=== PATIENT | female | born 1965 | race Caucasian/White ===

== ENCOUNTER 2017-11-30 10:21 | Inpatient (IN) | payer OTHER ==
[2017-11-30 11:49] VITALS: BMI 33.0
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
[2017-11-30] MEDS ORDERED: MENTHOL/PHENOL 1 EACH UD MM PRN (13:35)
[2017-11-30] MEDS ORDERED: MAGNESIUM CITRATE 300 ML BOTTLE PO PRN (13:35)
[2017-11-30] MEDS ORDERED: MAGNESIUM HYDROX 2400MG/30ML ORAL SUSPENSION 30 ML CUP PO PRN (13:35)
[2017-11-30] MEDS ORDERED: LOPERAMIDE HCL 2 MG CAPSULE PO PRN (13:35)
[2017-11-30] MEDS ORDERED: guaiFENesin/D-METHORPHAN HB 10 ML UNIT-DOSE CUPS PO PRN (13:35)
[2017-11-30] MEDS ORDERED: P-EPHED 60MG/TRIPROLIDI 2.5MG TABLET PO PRN (13:35)
[2017-11-30] MEDS ORDERED: NICOTINE POLACRILEX 2 MG GUM BC PRN (13:35)
[2017-11-30] MEDS ORDERED: MAG HYDROX/AL HYDROX/SIMETH 30 ML UNIT-DOSE CUP PO PRN (13:35)
[2017-11-30] MEDS ORDERED: ACETAMINOPHEN 325 MG TABLET (FP) PO PRN (13:35)
[2017-11-30] MEDS ORDERED: diazePAM 5 MG TABLET PO ONE (14:45)
[2017-11-30] MEDS ORDERED: BACITRACIN 0.9 GM PACKET TP ONE (15:53)
[2017-11-30] MEDS: CALCIUM 500MG/VIT-D 200 UNITS COMBO TABLET (FP) PO SCH (16:00)
[2017-11-30] MEDS: NICOTINE 14 MG/24 HOURS TOPICAL PATCH TD SCH (16:01)
[2017-11-30] MEDS: diazePAM 5 MG TABLET PO SCH ×2 (16:01→22:46)
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
[2017-11-30] MEDS: diazePAM 5 MG TABLET PO PRN (19:13)
[2017-11-30 19:24] LABS: URINE APPEARANCE SLCLOUDY; URINE BILIRUBIN NEGATIVE (<2.0 mg/dL); URINE COLOR YELLOW; URINE GLUCOSE (UA) NEGATIVE (NEGATIVE); URINE KETONE NEGATIVE (NEGATIVE); URINE NITRITE NEGATIVE (NEGATIVE); URINE PROTEIN NEGATIVE (NEGATIVE); URINE UROBILINOGEN NEGATIVE mg/dL (0.2-1.0)
[2017-11-30 20:21] LABS: URINE LEUK ESTERASE 3+ (NEGATIVE)
[2017-11-30] MEDS: LIDOCAINE 5% TOPICAL PATCH TP SCH (20:28)
[2017-11-30 20:36] LABS: EPI CELLS MODERATE /HPF (FEW); URINE BACTERIA FEW /hpf (NONE SEEN); URINE MUCUS RARE
[2017-11-30] MEDS ORDERED: MELATONIN 5 MG TABLETS PO PRN (22:00)
[2017-11-30] MEDS: QUEtiapine FUMARATE 50 MG TABLET PO SCH (22:46)
[2017-11-30] MEDS: THIAMINE HCL 100 MG TABLET (FP) PO SCH (22:47)
[2017-11-30] MEDS: MINERAL OIL/PETROLAT/WATER TOPICAL CREAM 113 GM JAR TP SCH (22:50)
[2017-11-30] MEDS: LIDOCAINE PATCH REMOVAL MC SCH (22:51)
[2017-12-01] MEDS: diazePAM 5 MG TABLET PO SCH ×3 (06:48→22:22)
[2017-12-01] MEDS ORDERED: METHADONE HCL 40 MG DISPERSABLE TABLET PO SCH ×3 (07:30→10:00)
[2017-12-01] MEDS ORDERED: METHADONE 40 MG, METHADONE 30 MG PO ONE (08:15)
[2017-12-01] MEDS ORDERED: METHADONE HCL 40 MG DISPERSABLE TABLET ONE (08:41)
[2017-12-01] MEDS ORDERED: METHADONE HCL 10 MG TABLET ONE (08:42)
[2017-12-01] MEDS: IBUPROFEN 400 MG TABLET (FP) PO PRN ×2 (08:54→22:22)
[2017-12-01 09:48] LABS: HEMATOCRIT 37.8 % (32.4-45.2); HEMOGLOBIN 12.7 GM/dL (10.7-15.3); MCH 26.5 pg (25.7-33.7); MCHC 33.6 g/dl (32.0-36.0); MEAN CELL VOLUME 78.8 fl (80-96); MEAN PLT VOLUME 11.3 fl (7.5-11.1); PLATELET COUNT 76 K/MM3 (134-434); RDW 15.8 % (11.6-15.6); WHITE BLOOD COUNT 9.9 K/mm3 (4.0-10.0)
--- NOTE | 2017-12-01 09:49 | EKG ---
Test Reason : Blood Pressure : / mmHG Vent. Rate : 068 BPM Atrial Rate : 068 BPM P-R Int : 140 ms QRS Dur : 098 ms QT Int : 518 ms P-R-T Axes : 023 -19 015 degrees QTc Int : 550 ms NORMAL SINUS RHYTHM MODERATE VOLTAGE CRITERIA FOR LVH, MAY BE NORMAL VARIANT PROLONGED QT ABNORMAL ECG NO PREVIOUS ECGS AVAILABLE Confirmed by GIGI GARCIA MD ([id number]) on 12/01/2017 9:49:02 AM Referred By: Confirmed By:GIGI GARCIA MD
[2017-12-01] MEDS ORDERED: LIDOCAINE 5% TOPICAL PATCH TP SCH (10:00)
--- NOTE | 2017-12-01 10:07 | PN ---
[facility] CIWA - CIWA Score Nausea/Vomitin-Mild Nausea/No Vomiting Muscle Tremors: 4-Moderate,w/Arms Extend Anxiety: 4-Mod. Anxious/Guarded Agitation: 4-Moderately Restless Paroxysmal Sweats: 1-Minimal Palms Moist Orientation: 0-Oriented Tacttile Disturbances: 0-None Auditory Disturbances: 0-None Visual Disturbances: 0-None Headache: 0-None Present CIWA-Ar Total Score: 14 BHS Progress Note (SOAP) Subjective: tremor sweat anxiety restlessness trouble sleep at night Objective: 12/01/17 10:05 Vital Signs Temperature 96.4 F L 12/01/17 09:31 Pulse Rate 76 12/01/17 09:31 Respiratory Rate 18 12/01/17 09:31 Blood Pressure 114/56 12/01/17 09:31 O2 Sat by Pulse Oximetry (%) Laboratory Last Values WBC 9.9 K/mm3 (4.0-10.0) 12/01/17 06:00 RBC 4.80 M/mm3 (3.60-5.2) 12/01/17 06:00 Hgb 12.7 GM/dL (10.7-15.3) 12/01/17 06:00 Hct 37.8 % (32.4-45.2) 12/01/17 06:00 MCV 78.8 fl (80-96) L 12/01/17 06:00 MCH 26.5 pg (25.7-33.7) 12/01/17 06:00 MCHC 33.6 g/dl (32.0-36.0) 12/01/17 06:00 RDW 15.8 % (11.6-15.6) H 12/01/17 06:00 Plt Count 76 K/MM3 (134-434) L 12/01/17 06:00 MPV 11.3 fl (7.5-11.1) H 12/01/17 06:00 Urine Color Yellow 11/30/17 15:00 Urine Appearance Slcloudy 11/30/17 15:00 Urine pH 5.0 (5.0-8.0) 11/30/17 15:00 Ur Specific [place] 1.014 (1.001-1.035) 11/30/17 15:00 Urine Protein Negative (NEGATIVE) 11/30/17 15:00 Urine Glucose (UA) Negative (NEGATIVE) 11/30/17 15:00 Urine Ketones Negative (NEGATIVE) 11/30/17 15:00 Urine Blood Negative (NEGATIVE) 11/30/17 15:00 Urine Nitrite Negative (NEGATIVE) 11/30/17 15:00 Urine Bilirubin Negative (<2.0 mg/dL) 11/30/17 15:00 Urine Urobilinogen Negative mg/dL (0.2-1.0) 11/30/17 15:00 Ur Leukocyte Esterase 3+ (NEGATIVE) H 11/30/17 15:00 Urine WBC (Auto) 15 /hpf (3-5) 11/30/17 15:00 Urine RBC (Auto) 2 /hpf (0-3) 11/30/17 15:00 Ur Epithelial Cells Moderate /HPF (FEW) 11/30/17 15:00 Urine Bacteria Few /hpf (NONE SEEN) 11/30/17 15:00 Urine Mucus Rare 11/30/17 15:00 HIV 1&2 Antibody Screen Negative 11/30/17 13:20 HIV P24 Antigen Negative 11/30/17 13:20 lab noted 12/01/17 10:07 repeat ua Assessment: 12/01/17 10:07 withdrawal sx Plan: continue detox
[2017-12-01] MEDS: PRENATAL VITAMINS W/ FOLIC ACID TABLET (FP) PO SCH (10:22)
[2017-12-01] MEDS: CALCIUM 500MG/VIT-D 200 UNITS COMBO TABLET (FP) PO SCH (10:22)
[2017-12-01] MEDS: NICOTINE 14 MG/24 HOURS TOPICAL PATCH TD SCH (10:22)
[2017-12-01] MEDS: LIDOCAINE 5% TOPICAL PATCH TP SCH (10:23)
[2017-12-01 10:37] LABS: ALBUMIN 3.8 g/dl (3.4-5.0); ANION GAP 9 (8-16); BLOOD UREA NITROGEN 31 mg/dL (7-18); CALCIUM 8.8 mg/dL (8.5-10.1); CHLORIDE 88 mmol/L (98-107); CO2 35 mmol/L (21-32); GLUCOSE,RANDOM 188 mg/dL (74-106); POTASSIUM 3.3 mmol/L (3.5-5.1); SODIUM 132 mmol/L (136-145)
[2017-12-01 10:46] LABS: ALK PHOS 97 U/L (45-117); BILIRUBIN,TOTAL 1.9 mg/dL (0.2-1.0); CREATININE 1.6 mg/dL (0.55-1.02); SGOT/AST 30 U/L (15-37); SGPT/ALT 22 U/L (12-78); TOT PROT 8.2 g/dl (6.4-8.2)
--- NOTE | 2017-12-01 11:56 | EKG ---
Test Reason : Blood Pressure : / mmHG Vent. Rate : 073 BPM Atrial Rate : 073 BPM P-R Int : 144 ms QRS Dur : 108 ms QT Int : 484 ms P-R-T Axes : 018 -18 020 degrees QTc Int : 533 ms NORMAL SINUS RHYTHM MODERATE VOLTAGE CRITERIA FOR LVH, MAY BE NORMAL VARIANT PROLONGED QT ABNORMAL ECG WHEN COMPARED WITH ECG OF 30-NOV-2017 15:43, NO SIGNIFICANT CHANGE WAS FOUND Confirmed by RADHA CHEN, GIGI ([id number]) on 12/01/2017 11:56:34 AM Referred By: Confirmed By:GIGI GARCIA MD
[2017-12-01] MEDS: diazePAM 5 MG TABLET PO PRN (19:00)
[2017-12-01] MEDS ORDERED: LIDOCAINE PATCH REMOVAL MC SCH (22:00)
[2017-12-01] MEDS: QUEtiapine FUMARATE 50 MG TABLET PO SCH (22:22)
[2017-12-01] MEDS: THIAMINE HCL 100 MG TABLET (FP) PO SCH (22:22)
[2017-12-01] MEDS: MINERAL OIL/PETROLAT/WATER TOPICAL CREAM 113 GM JAR TP SCH (22:48)
[2017-12-01] MEDS: LIDOCAINE PATCH REMOVAL MC SCH (22:48)
[2017-12-02] MEDS ORDERED: METHADONE HCL 40 MG DISPERSABLE TABLET ONE (09:17)
[2017-12-02] MEDS ORDERED: METHADONE HCL 10 MG TABLET ONE (09:18)
--- NOTE | 2017-12-02 10:09 | PN ---
S CIWA - CIWA Score Nausea/Vomitin-Mild Nausea/No Vomiting Muscle Tremors: 4-Moderate,w/Arms Extend Anxiety: 3 Agitation: 3 Paroxysmal Sweats: 1-Minimal Palms Moist Orientation: 0-Oriented Tacttile Disturbances: 0-None Auditory Disturbances: 0-None Visual Disturbances: 0-None Headache: 0-None Present CIWA-Ar Total Score: 12 BHS Progress Note (SOAP) Subjective: sweat tremor trouble sleeping at night anxiety ambulate with cane Objective: 12/02/17 10:17 Vital Signs Temperature 98.1 F 12/02/17 04:00 Pulse Rate 68 12/02/17 04:00 Respiratory Rate 18 12/02/17 04:00 Blood Pressure 98/50 12/02/17 04:00 O2 Sat by Pulse Oximetry (%) Laboratory Last Values WBC 9.9 K/mm3 (4.0-10.0) 12/01/17 06:00 RBC 4.80 M/mm3 (3.60-5.2) 12/01/17 06:00 Hgb 12.7 GM/dL (10.7-15.3) 12/01/17 06:00 Hct 37.8 % (32.4-45.2) 12/01/17 06:00 MCV 78.8 fl (80-96) L 12/01/17 06:00 MCH 26.5 pg (25.7-33.7) 12/01/17 06:00 MCHC 33.6 g/dl (32.0-36.0) 12/01/17 06:00 RDW 15.8 % (11.6-15.6) H 12/01/17 06:00 Plt Count 76 K/MM3 (134-434) L 12/01/17 06:00 MPV 11.3 fl (7.5-11.1) H 12/01/17 06:00 Sodium 132 mmol/L (136-145) L 12/01/17 06:00 Potassium 3.3 mmol/L (3.5-5.1) L 12/01/17 06:00 Chloride 88 mmol/L (98-107) L 12/01/17 06:00 Carbon Dioxide 35 mmol/L (21-32) H 12/01/17 06:00 Anion Gap 9 (8-16) 12/01/17 06:00 BUN 31 mg/dL (7-18) H 12/01/17 06:00 Creatinine 1.6 mg/dL (0.55-1.02) H 12/01/17 06:00 Creat Clearance w eGFR 33.59 (>60) 12/01/17 06:00 Random Glucose 188 mg/dL (74-106) H 12/01/17 06:00 Calcium 8.8 mg/dL (8.5-10.1) 12/01/17 06:00 Total Bilirubin 1.9 mg/dL (0.2-1.0) H 12/01/17 06:00 AST 30 U/L (15-37) 12/01/17 06:00 ALT 22 U/L (12-78) 12/01/17 06:00 Alkaline Phosphatase 97 U/L (45-117) 12/01/17 06:00 Total Protein 8.2 g/dl (6.4-8.2) 12/01/17 06:00 Albumin 3.8 g/dl (3.4-5.0) 12/01/17 06:00 Urine Color Yellow 11/30/17 15:00 Urine Appearance Slcloudy 11/30/17 15:00 Urine pH 5.0 (5.0-8.0) 11/30/17 15:00 Ur Specific [place] 1.014 (1.001-1.035) 11/30/17 15:00 Urine Protein Negative (NEGATIVE) 11/30/17 15:00 Urine Glucose (UA) Negative (NEGATIVE) 11/30/17 15:00 Urine Ketones Negative (NEGATIVE) 11/30/17 15:00 Urine Blood Negative (NEGATIVE) 11/30/17 15:00 Urine Nitrite Negative (NEGATIVE) 11/30/17 15:00 Urine Bilirubin Negative (<2.0 mg/dL) 11/30/17 15:00 Urine Urobilinogen Negative mg/dL (0.2-1.0) 11/30/17 15:00 Ur Leukocyte Esterase 3+ (NEGATIVE) H 11/30/17 15:00 Urine WBC (Auto) 15 /hpf (3-5) 11/30/17 15:00 Urine RBC (Auto) 2 /hpf (0-3) 11/30/17 15:00 Ur Epithelial Cells Moderate /HPF (FEW) 11/30/17 15:00 Urine Bacteria Few /hpf (NONE SEEN) 11/30/17 15:00 Urine Mucus Rare 11/30/17 15:00 RPR Titer Nonreactive (NONREACTIVE) 12/01/17 06:00 HIV 1&2 Antibody Screen Negative 11/30/17 13:20 HIV P24 Antigen Negative 11/30/17 13:20 lab noted K+ supplement Assessment: 12/02/17 10:23 withdrawal sx low K+ serum Plan: continue detox K+ 20 meq po bid repeat serum K+ level
[2017-12-02] MEDS: diazePAM 5 MG TABLET PO SCH ×2 (10:53→22:34)
[2017-12-02] MEDS: PRENATAL VITAMINS W/ FOLIC ACID TABLET (FP) PO SCH (10:53)
[2017-12-02] MEDS: METHADONE 40 MG, METHADONE 30 MG PO SCH (10:53)
[2017-12-02] MEDS: CALCIUM 500MG/VIT-D 200 UNITS COMBO TABLET (FP) PO SCH (10:54)
[2017-12-02] MEDS: NICOTINE 14 MG/24 HOURS TOPICAL PATCH TD SCH (10:55)
[2017-12-02] MEDS: LIDOCAINE 5% TOPICAL PATCH TP SCH (10:56)
[2017-12-02] MEDS: POTASSIUM CHLORIDE ORAL LIQUID 20 MEQ/15 ML PO SCH ×2 (10:57→22:33)
[2017-12-02] MEDS: diazePAM 5 MG TABLET PO PRN (17:51)
[2017-12-02] MEDS: IBUPROFEN 400 MG TABLET (FP) PO PRN (22:33)
[2017-12-02] MEDS: THIAMINE HCL 100 MG TABLET (FP) PO SCH (22:34)
[2017-12-02] MEDS: QUEtiapine FUMARATE 50 MG TABLET PO SCH (22:34)
[2017-12-02] MEDS: MINERAL OIL/PETROLAT/WATER TOPICAL CREAM 113 GM JAR TP SCH (23:20)
[2017-12-02] MEDS: LIDOCAINE PATCH REMOVAL MC SCH (23:20)
[2017-12-03] MEDS ORDERED: METHADONE HCL 10 MG TABLET ONE (09:11)
[2017-12-03] MEDS ORDERED: METHADONE HCL 40 MG DISPERSABLE TABLET ONE (09:11)
--- NOTE | 2017-12-03 09:50 | PN ---
Psychiatric Progress Note Vital Signs: Vital Signs Period Temp Pulse Resp BP Sys/Tilley Pulse Ox Last 24 Hr 97.5 F-100.0 F 67-75 16-20 99-123/56-68 Date of Session: 12/03/17 Chief Complaint:: " I have anxiety." HPI: Patient admitted to for alcohol and cocaine dependence. ROS: Anemia, Seizures, (last had one 2 days ago), Heartburn, UTI in the past, Hep C (treated) Current Medications: Active Medications Generic Name Dose Route Start Last Admin Trade Name Freq PRN Reason Stop Dose Admin Acetaminophen 650 mg 11/30/17 13:35 Tylenol - PO Q4H PRN FEVER Al Hydroxide/Mg Hydroxide 30 ml 11/30/17 13:35 Mylanta Oral Suspension - PO Q6H PRN DYSPEPSIA Calcium Carbonate/Cholecalciferol 1 tab 11/30/17 15:45 12/02/17 10:54 Os-Thiago 500+D - PO Not Given DAILY KANDACE Diazepam 5 mg 12/02/17 10:00 12/02/17 22:34 Valium - PO 12/03/17 22:01 5 mg BID KANDACE Administration Diazepam 5 mg 12/04/17 10:00 Valium - PO 12/04/17 10:01 DAILY KANDACE Diazepam 10 mg 11/30/17 13:35 12/02/17 17:51 Valium - PO 12/03/17 13:34 10 mg Q4H PRN Administration WITHDRAWAL(CONT SUBST) Eucalyptus/Menthol/Phenol/Sorbitol 1 each 11/30/17 13:35 Cepastat Lozenge - MM Q4H PRN SORE THROAT Guaifenesin 10 ml 11/30/17 13:35 Robitussin Dm - PO Q6H PRN COUGH Ibuprofen 400 mg 11/30/17 13:35 12/02/17 22:33 Motrin - PO 400 mg Q6H PRN Administration PAIN LEVEL 4-6 Lidocaine 2 patch 11/30/17 19:45 12/02/17 10:56 Lidoderm Patch - TP 2 patch DAILY KANDACE Administration Loperamide HCl 4 mg 11/30/17 13:35 Imodium - PO Q6H PRN DIARRHEA Magnesium Citrate 300 ml 11/30/17 13:35 Citroma - PO Q48H PRN CONSTIPATION Magnesium Hydroxide 30 ml 11/30/17 13:35 Milk Of Magnesia - PO DAILY PRN CONSTIPATION Methadone HCl 40 mg/ Methadone 70 mg 12/02/17 10:00 12/02/17 10:53 HCl 30 mg PO 70 mg DAILY KANDACE Administration Miscellaneous 1 each 11/30/17 22:00 12/02/17 23:20 Lidoderm Patch Removal MC Not Given DAILY@2200 KANDACE Multi-Ingredient Lotion 1 applic 11/30/17 22:00 12/02/17 23:20 Eucerin (Small Jar) - TP Not Given HS KANDACE Nicotine 14 mg 11/30/17 14:45 12/02/17 10:55 Nicoderm Patch - TD 14 mg DAILY KANDACE Administration Nicotine Polacrilex 2 mg 11/30/17 13:35 Nicorette Gum - BC Q2H PRN NICOTINE REPLACEMENT RX Potassium Chloride 20 meq 12/02/17 10:45 12/02/17 22:33 Potassium Chloride Oral Liquid PO 20 meq BID KANDACE Administration Multivit/Folic Acid/Iron 1 tab 12/01/17 10:00 12/02/17 10:53 Vitamins (Sjr) - PO 1 tab DAILY KANDACE Administration Pseudoephedrine/Triprolidine 1 combo 11/30/17 13:35 Actifed - PO TID PRN NASAL CONGESTION Quetiapine Fumarate 50 mg 11/30/17 22:00 12/02/17 22:34 Seroquel - PO 50 mg HS KANDACE Administration Thiamine HCl 100 mg 11/30/17 22:00 12/02/17 22:34 Vitamin B1 - PO 100 mg HS KANDACE Administration Medication(s) Change(s): Will order vistaril 25mg every 6 hours for anxiety. Current Side Effect: No Lab tests ordered: No Lab tests reviewed: Yes Provider note:: Print Manager approached patient concerning psychiatric reconsultation. Pt c/o anxiety. States she feels anxious because of the withdrawals. Pt c/o constant sweating, restless legs, and tremors. Patient educated on the withdrawal symptoms of substance dependence. Pt. seen by the nurse practitioner. Patient's symptoms are being addressed with the detox protocol. Vistaril 25mg every 6 hours for patient. Benefits and side effects discussed. Verbal consent given. Will continue to monitor. Total face to face time:: 25 Mental Status Exam - Mental Status Exam Alert and Oriented to: Time, Place, Person Cognitive Function: Good Patient Appearance: Well Groomed Mood: Withdrawn Affect: Flat Patient Behavior: Fatigued Speech Pattern: Delayed Voice Loudness: Moderately Soft/Quiet Thought Process: Goal Oriented Thought Disorder: Not Present Hallucinations: Denies Suicidal Ideation: Denies Homicidal Ideation: Denies Insight/Judgement: Poor Sleep: Fair Appetite: Fair Muscle strength/Tone: Normal Gait/Station: Other (Patient uses a rolling walker to ambulate.) Psychiatric Treatment Plan - Problem List (1) Alcohol dependence with uncomplicated withdrawal Current Visit: Yes (2) Methadone maintenance therapy patient Current Visit: Yes (3) PTSD (post-traumatic stress disorder) Current Visit: Yes (4) Substance induced mood disorder Current Visit: Yes
[2017-12-03] MEDS ORDERED: hydrOXYzine PAMOATE 25 MG CAPSULE (FP) PO PRN (10:22)
[2017-12-03] MEDS: diazePAM 5 MG TABLET PO SCH ×2 (10:25→21:46)
[2017-12-03] MEDS: PRENATAL VITAMINS W/ FOLIC ACID TABLET (FP) PO SCH (10:25)
[2017-12-03] MEDS: METHADONE 40 MG, METHADONE 30 MG PO SCH (10:25)
[2017-12-03] MEDS: POTASSIUM CHLORIDE ORAL LIQUID 20 MEQ/15 ML PO SCH ×2 (10:25→21:45)
[2017-12-03] MEDS: NICOTINE 14 MG/24 HOURS TOPICAL PATCH TD SCH (10:29)
[2017-12-03] MEDS: LIDOCAINE 5% TOPICAL PATCH TP SCH (10:29)
--- NOTE | 2017-12-03 12:17 | PN ---
BHS Progress Note (SOAP) Subjective: feel better less sweat no tremor tolerated food and fluid well Objective: 12/03/17 12:15 Vital Signs Temperature 97.7 F 12/03/17 10:44 Pulse Rate 70 12/03/17 10:44 Respiratory Rate 18 12/03/17 10:44 Blood Pressure 116/55 12/03/17 10:44 O2 Sat by Pulse Oximetry (%) Laboratory Last Values WBC 9.9 K/mm3 (4.0-10.0) 12/01/17 06:00 RBC 4.80 M/mm3 (3.60-5.2) 12/01/17 06:00 Hgb 12.7 GM/dL (10.7-15.3) 12/01/17 06:00 Hct 37.8 % (32.4-45.2) 12/01/17 06:00 MCV 78.8 fl (80-96) L 12/01/17 06:00 MCH 26.5 pg (25.7-33.7) 12/01/17 06:00 MCHC 33.6 g/dl (32.0-36.0) 12/01/17 06:00 RDW 15.8 % (11.6-15.6) H 12/01/17 06:00 Plt Count 76 K/MM3 (134-434) L 12/01/17 06:00 MPV 11.3 fl (7.5-11.1) H 12/01/17 06:00 Sodium 132 mmol/L (136-145) L 12/01/17 06:00 Potassium 4.1 mmol/L (3.5-5.1) 12/03/17 07:30 Chloride 88 mmol/L (98-107) L 12/01/17 06:00 Carbon Dioxide 35 mmol/L (21-32) H 12/01/17 06:00 Anion Gap 9 (8-16) 12/01/17 06:00 BUN 31 mg/dL (7-18) H 12/01/17 06:00 Creatinine 1.6 mg/dL (0.55-1.02) H 12/01/17 06:00 Creat Clearance w eGFR 33.59 (>60) 12/01/17 06:00 POC Glucometer 96 UNITS (80-120) 12/03/17 07:51 Random Glucose 188 mg/dL (74-106) H 12/01/17 06:00 Calcium 8.8 mg/dL (8.5-10.1) 12/01/17 06:00 Total Bilirubin 1.9 mg/dL (0.2-1.0) H 12/01/17 06:00 AST 30 U/L (15-37) 12/01/17 06:00 ALT 22 U/L (12-78) 12/01/17 06:00 Alkaline Phosphatase 97 U/L (45-117) 12/01/17 06:00 Total Protein 8.2 g/dl (6.4-8.2) 12/01/17 06:00 Albumin 3.8 g/dl (3.4-5.0) 12/01/17 06:00 Urine Color Yellow 11/30/17 15:00 Urine Appearance Slcloudy 11/30/17 15:00 Urine pH 5.0 (5.0-8.0) 11/30/17 15:00 Ur Specific [place] 1.014 (1.001-1.035) 11/30/17 15:00 Urine Protein Negative (NEGATIVE) 11/30/17 15:00 Urine Glucose (UA) Negative (NEGATIVE) 11/30/17 15:00 Urine Ketones Negative (NEGATIVE) 11/30/17 15:00 Urine Blood Negative (NEGATIVE) 11/30/17 15:00 Urine Nitrite Negative (NEGATIVE) 11/30/17 15:00 Urine Bilirubin Negative (<2.0 mg/dL) 11/30/17 15:00 Urine Urobilinogen Negative mg/dL (0.2-1.0) 11/30/17 15:00 Ur Leukocyte Esterase 3+ (NEGATIVE) H 11/30/17 15:00 Urine WBC (Auto) 15 /hpf (3-5) 11/30/17 15:00 Urine RBC (Auto) 2 /hpf (0-3) 11/30/17 15:00 Ur Epithelial Cells Moderate /HPF (FEW) 11/30/17 15:00 Urine Bacteria Few /hpf (NONE SEEN) 11/30/17 15:00 Urine Mucus Rare 11/30/17 15:00 RPR Titer Nonreactive (NONREACTIVE) 12/01/17 06:00 HIV 1&2 Antibody Screen Negative 11/30/17 13:20 HIV P24 Antigen Negative 11/30/17 13:20 lab noted Assessment: 12/03/17 12:17 mild withdrawal sx Plan: medically supervised detox
[2017-12-03] MEDS: IBUPROFEN 400 MG TABLET (FP) PO PRN ×2 (12:37→21:45)
[2017-12-03] MEDS: THIAMINE HCL 100 MG TABLET (FP) PO SCH (21:46)
[2017-12-03] MEDS: QUEtiapine FUMARATE 50 MG TABLET PO SCH (21:46)
[2017-12-03] MEDS: LIDOCAINE PATCH REMOVAL MC SCH (23:07)
[2017-12-03] MEDS: MINERAL OIL/PETROLAT/WATER TOPICAL CREAM 113 GM JAR TP SCH (23:07)
[2017-12-04 06:30] VITALS: BP 94/56; PULSE 70; TEMP 98.3
[2017-12-04] MEDS ORDERED: METHADONE HCL 10 MG TABLET ONE (09:04)
[2017-12-04] MEDS ORDERED: METHADONE HCL 40 MG DISPERSABLE TABLET ONE (09:04)
[2017-12-04] MEDS: PRENATAL VITAMINS W/ FOLIC ACID TABLET (FP) PO SCH (09:05)
[2017-12-04] MEDS: METHADONE 40 MG, METHADONE 30 MG PO SCH (09:05)
[2017-12-04] MEDS: POTASSIUM CHLORIDE ORAL LIQUID 20 MEQ/15 ML PO SCH (09:06)
[2017-12-04] MEDS: IBUPROFEN 400 MG TABLET (FP) PO PRN (09:10)
[2017-12-04] MEDS: LIDOCAINE 5% TOPICAL PATCH TP SCH (09:11)
[2017-12-04] MEDS ORDERED: diazePAM 5 MG TABLET PO SCH (10:00)
[2017-12-04 11:37] LABS: URINE APPEARANCE CLOUDY; URINE BILIRUBIN NEGATIVE (<2.0 mg/dL); URINE COLOR YELLOW; URINE GLUCOSE (UA) NEGATIVE (NEGATIVE); URINE KETONE NEGATIVE (NEGATIVE); URINE NITRITE NEGATIVE (NEGATIVE); URINE PROTEIN NEGATIVE (NEGATIVE)
[2017-12-04 11:38] LABS: URINE LEUK ESTERASE 2+ (NEGATIVE)
[2017-12-04 11:39] LABS: EPI CELLS MODERATE /HPF (FEW); URINE BACTERIA FEW /hpf (NONE SEEN)
--- NOTE | 2017-12-04 14:34 | DS ---
[facility] Detox Discharge Summary Admission Date: 11/30/17 Discharge Date: 12/04/17 - History Present History: Alcohol Dependence, Cannabis Dependence, Cocaine Dependence, Opioid Dependence Pertinent Past History: Seizure disorder, Hep C, GERD - Physical Exam Results Vital Signs: Vital Signs Temperature 98.3 F 12/04/17 06:29 Pulse Rate 70 12/04/17 06:29 Respiratory Rate 16 12/04/17 06:29 Blood Pressure 94/56 12/04/17 06:29 O2 Sat by Pulse Oximetry (%) Pertinent Admission Physical Exam Findings: Withdrawal sx Laboratory Last Values WBC 9.9 K/mm3 (4.0-10.0) 12/01/17 06:00 RBC 4.80 M/mm3 (3.60-5.2) 12/01/17 06:00 Hgb 12.7 GM/dL (10.7-15.3) 12/01/17 06:00 Hct 37.8 % (32.4-45.2) 12/01/17 06:00 MCV 78.8 fl (80-96) L 12/01/17 06:00 MCH 26.5 pg (25.7-33.7) 12/01/17 06:00 MCHC 33.6 g/dl (32.0-36.0) 12/01/17 06:00 RDW 15.8 % (11.6-15.6) H 12/01/17 06:00 Plt Count 76 K/MM3 (134-434) L 12/01/17 06:00 MPV 11.3 fl (7.5-11.1) H 12/01/17 06:00 Sodium 132 mmol/L (136-145) L 12/01/17 06:00 Potassium 4.1 mmol/L (3.5-5.1) 12/03/17 07:30 Chloride 88 mmol/L (98-107) L 12/01/17 06:00 Carbon Dioxide 35 mmol/L (21-32) H 12/01/17 06:00 Anion Gap 9 (8-16) 12/01/17 06:00 BUN 31 mg/dL (7-18) H 12/01/17 06:00 Creatinine 1.6 mg/dL (0.55-1.02) H 12/01/17 06:00 Creat Clearance w eGFR 33.59 (>60) 12/01/17 06:00 POC Glucometer 112 UNITS (80-120) 12/04/17 05:35 Random Glucose 188 mg/dL (74-106) H 12/01/17 06:00 Calcium 8.8 mg/dL (8.5-10.1) 12/01/17 06:00 Total Bilirubin 1.9 mg/dL (0.2-1.0) H 12/01/17 06:00 AST 30 U/L (15-37) 12/01/17 06:00 ALT 22 U/L (12-78) 12/01/17 06:00 Alkaline Phosphatase 97 U/L (45-117) 12/01/17 06:00 Total Protein 8.2 g/dl (6.4-8.2) 12/01/17 06:00 Albumin 3.8 g/dl (3.4-5.0) 12/01/17 06:00 Urine Color Yellow 12/04/17 07:40 Urine Appearance Cloudy 12/04/17 07:40 Urine pH 6.0 (5.0-8.0) 12/04/17 07:40 Ur Specific [place] 1.011 (1.001-1.035) 12/04/17 07:40 Urine Protein Negative (NEGATIVE) 12/04/17 07:40 Urine Glucose (UA) Negative (NEGATIVE) 12/04/17 07:40 Urine Ketones Negative (NEGATIVE) 12/04/17 07:40 Urine Blood Negative (NEGATIVE) 12/04/17 07:40 Urine Nitrite Negative (NEGATIVE) 12/04/17 07:40 Urine Bilirubin Negative (<2.0 mg/dL) 12/04/17 07:40 Urine Urobilinogen 2.0 mg/dL (0.2-1.0) H 12/04/17 07:40 Ur Leukocyte Esterase 2+ (NEGATIVE) H 12/04/17 07:40 Urine WBC (Auto) 17 /hpf (3-5) 12/04/17 07:40 Urine RBC (Auto) <1 /hpf (0-3) 12/04/17 07:40 Ur Epithelial Cells Moderate /HPF (FEW) 12/04/17 07:40 Urine Bacteria Few /hpf (NONE SEEN) 12/04/17 07:40 Urine Mucus Rare 11/30/17 15:00 RPR Titer Nonreactive (NONREACTIVE) 12/01/17 06:00 HIV 1&2 Antibody Screen Negative 11/30/17 13:20 HIV P24 Antigen Negative 11/30/17 13:20 Labs noted - Treatment Hospital Course: Detox Protocol Followed, Detoxed Safely, Responded well, Discharged Condition Good - Medication Discharge Medications: Ambulatory Orders Calcium Carbonate/Vitamin D3 [Calcium 500 + Vit D Caplet] 1 tab PO DAILY Methadone [Dolophine -] 70 mg PO DAILY 12/01/17 Magnesium Oxide [Magnesium] 400 mg PO DAILY #30 tablet 12/03/17 - Diagnosis (1) Alcohol dependence with uncomplicated withdrawal Status: Acute (2) Substance induced mood disorder Status: Acute (3) Anxiety with depression Status: Chronic (4) History of hepatitis C Status: Chronic (5) Methadone maintenance therapy patient Status: Chronic (6) History of anemia Status: Suspected (7) Seizure disorder Status: Suspected - AMA Did Patient Leave Against Medical Advice: No
== END 2017-12-04 10:17 | disposition home or self-care (01) | DRG 773 ==
LOC: YASAS 10:21 → Y6N 13:53
PROVIDERS: ADMIT Internal Medicine; ATTEND Internal Medicine
PROC: HZ2ZZZZ Detoxification Services for Substance Abuse Treatment (ICD-10-PCS; principal; 2017-11-30)
DX: F11.20 Opioid dependence, uncomplicated (principal); F10.230 Alcohol dependence with withdrawal, uncomplicated; F19.24 Other psychoactive substance dependence with psychoactive substance-induced mood disorder; F41.8 Other specified anxiety disorders; F43.10 Post-traumatic stress disorder, unspecified; B18.2 Chronic viral hepatitis C; Z86.2 Personal history of diseases of the blood and blood-forming organs and certain disorders involving the immune mechanism; Z86.69 Personal history of other diseases of the nervous system and sense organs; Z91.5 Personal history of self-harm; R26.89 Other abnormalities of gait and mobility; Z99.89 Dependence on other enabling machines and devices
CPT/HCPCS: 36415; 71046-TC-FY; 80053; 81003; 81015; 82962; 84132; 85027; 86593; 87389; 93005; 93010